=== PATIENT | female | born 1950 | race Caucasian/White ===

== ENCOUNTER → 2023-07-15 07:17 | Outpatient (REF) | payer BC, SELFPAY ==
[2023-07-15 10:08] LABS: Urine Albumin Negative (Neg - Trace); Urine Bilirubin Negative (Negative); Urine Character Clear (Clear); Urine Color Yellow; Urine Glucose Negative (Negative); Urine Ketone Negative (Negative); Urine Leukocyte 2+ (Negative); Urine Nitrite Negative (Negative); Urine Occult Blood Negative (Negative); Urine Specific Gravity 1.015 (<1.030); Urine Urobilinogen Negative (Neg - 1+)
[2023-07-15 10:16] LABS: ALT (SGPT) 34 U/L (0-35); AST (SGOT) 36 U/L (14-36); Albumin 4.2 g/dl (3.5-5.0); Alkaline Phosphatase 47 U/L (38-126); Blood Urea Nitrogen 24 mg/dl (7-17); Calcium 10.1 mg/dl (8.4-10.2); Carbon Dioxide 29 mmol/L (22-30); Chloride 105 mmol/L (98-107); Glucose 115 mg/dl (70-99); HDL Cholesterol 71 mg/dl; LDL Cholesterol, Calculated 83 mg/dl; Potassium 3.8 mmol/L (3.5-5.1); Sodium 140 mmol/L (135-145); Total Bilirubin 0.6 mg/dl (0.2-1.3); Total Cholesterol 171 mg/dl (50-199); Triglyceride 88 mg/dl (10-149); Very Low Density Lipoprotein 17 mg/dl (0-30); eGFR > 60.00
[2023-07-15 10:22] LABS: % Basophils 0.7 % (0-2); % Eosinophils 0.9 % (0-6); % Immature Granulocytes 0.4 % (0-0.5); % Monocytes 10.4 % (1.7-9.3); % Neutrophils 50.6 % (42.2-75.2); Absolute Eosinophils 0.1 10^3/uL (0-0.7); Absolute Lymphocytes 2.1 10^3/uL (1.2-3.4); Absolute Monocytes 0.6 10^3/uL (0.1-0.6); Absolute Neutrophils 2.8 10^3/uL (1.4-6.5); Hematocrit 35.3 % (37.0-47.0); Hemoglobin 12.4 g/dL (12.0-16.0); Mean Corp Hgb Conc. 35.1 g/dL (33.0-37.0); Mean Corpuscular Volume 96.7 fL (81.0-99.0); Mean Platelet Volume 10.4 fL (7.4-10.4); Nucleated Red Blood Cells % 0 %; Platelet Count 242 10^3/uL (130-400); Red Blood Cell Count 3.65 10^6/uL (4.20-5.40); Red Cell Dist. Width 12.8 % (11.5-14.5); White Blood Cell Count 5.6 10^3/uL (4.8-10.8)
[2023-07-15 11:10] LABS: Urine Amorphous Seen; Urine Bacteria Few (Negative); Urine Red Blood Cell 0-2 /HPF (0-2); Urine Urothelial Cell 0-2 /LPF (FEW)
== END ==
LOC: HWLAB 07:17
PROVIDERS: ATTENDING PHYSICIAN Nurse Practitioner Adult Health
DX: R73.03 Prediabetes (principal); Z13.9 Encounter for screening, unspecified
CPT/HCPCS: 36415; 80053; 80061; 81003; 81015; 83036; 85025; 87086

== ENCOUNTER → 2023-07-27 10:09 | Outpatient (REF) | payer BC, SELFPAY | LOC: HWLAB 10:09 | PROVIDERS: ATTENDING PHYSICIAN Nurse Practitioner Adult Health | DX: R50.9 Fever, unspecified (principal); Z87.891 Personal history of nicotine dependence | CPT/HCPCS: 71046 ==

== ENCOUNTER 2023-09-22 17:51 | Outpatient (RCR) | payer BC, SELFPAY | END 2023-09-22 23:59 | disposition home or self-care (01) | LOC: RPT 17:51 | PROVIDERS: ATTENDING PHYSICIAN Physician Assistant; FAMILY PHYSICIAN Nurse Practitioner Adult Health | DX: M51.16 Intervertebral disc disorders with radiculopathy, lumbar region (principal) | CPT/HCPCS: 97110; 97112; 97162; 97530 ==

== ENCOUNTER → 2023-09-29 16:17 | Outpatient (REF) | payer BC, SELFPAY | LOC: HWRAD 16:17 | PROVIDERS: ATTENDING PHYSICIAN Podiatrist; FAMILY PHYSICIAN Nurse Practitioner Adult Health | DX: S92.214A Nondisplaced fracture of cuboid bone of right foot, initial encounter for closed fracture (principal) | CPT/HCPCS: 73630 ==

== ENCOUNTER 2023-10-13 17:08 | Outpatient (RCR) | payer BC, SELFPAY | END 2023-10-13 23:59 | disposition home or self-care (01) | LOC: RPT 17:08 | PROVIDERS: ATTENDING PHYSICIAN Physician Assistant; FAMILY PHYSICIAN Nurse Practitioner Adult Health | DX: M51.16 Intervertebral disc disorders with radiculopathy, lumbar region (principal); M54.50 Low back pain, unspecified | CPT/HCPCS: 97010; 97110; 97112; 97530 ==

== ENCOUNTER → 2023-10-27 07:35 | Outpatient (REF) | payer BC, SELFPAY ==
[2023-10-27 09:57] LABS: % Basophils 0.5 % (0-2); % Eosinophils 0.5 % (0-6); % Immature Granulocytes 0.3 % (0-0.5); % Monocytes 9.3 % (1.7-9.3); % Neutrophils 54.4 % (42.2-75.2); Absolute Lymphocytes 2.1 10^3/uL (1.2-3.4); Absolute Monocytes 0.6 10^3/uL (0.1-0.6); Absolute Neutrophils 3.3 10^3/uL (1.4-6.5); Hemoglobin 12.5 g/dL (12.0-16.0); Mean Corp Hgb Conc. 36.8 g/dL (33.0-37.0); Mean Corpuscular Hgb 34.7 pg (27.0-31.0); Mean Corpuscular Volume 94.4 fL (81.0-99.0); Nucleated Red Blood Cells % 0 %; Red Cell Dist. Width 13.1 % (11.5-14.5)
[2023-10-27 10:31] LABS: ALT (SGPT) 39 U/L (0-35); AST (SGOT) 43 U/L (14-36); Albumin 4.5 g/dl (3.5-5.0); Alkaline Phosphatase 48 U/L (38-126); Blood Urea Nitrogen 25 mg/dl (7-17); Carbon Dioxide 30 mmol/L (22-30); Chloride 101 mmol/L (98-107); Glucose 117 mg/dl (70-99); Potassium 3.7 mmol/L (3.5-5.1); Sodium 142 mmol/L (135-145); Total Bilirubin 0.8 mg/dl (0.2-1.3); eGFR > 60.00
[2023-10-27 10:38] LABS: C-Reactive Protein < 5.00 mg/L (0.0-10.00)
[2023-10-28 17:15] LABS: Rheumatoid Agglutinin Less Than 10 IU (<10 IU)
== END ==
LOC: HWLAB 07:35
PROVIDERS: ATTENDING PHYSICIAN Physician Assistant; FAMILY PHYSICIAN Nurse Practitioner Adult Health
DX: M05.9 Rheumatoid arthritis with rheumatoid factor, unspecified (principal); M15.9 Polyosteoarthritis, unspecified; R76.8 Other specified abnormal immunological findings in serum
CPT/HCPCS: 36415; 80053; 85025; 86140; 86430

== ENCOUNTER → 2023-11-26 07:43 | Outpatient (REF) | payer BC, SELFPAY | LOC: HWWDC 07:43 | PROVIDERS: ATTENDING PHYSICIAN Nurse Practitioner Adult Health | DX: Z78.0 Asymptomatic menopausal state (principal); Z12.31 Encounter for screening mammogram for malignant neoplasm of breast | CPT/HCPCS: 77063; 77067; 77080 ==

== ENCOUNTER → 2023-12-10 10:05 | Outpatient (REF) | payer BC, SELFPAY | LOC: WDC 10:05 | PROVIDERS: ATTENDING PHYSICIAN Nurse Practitioner Adult Health | DX: R92.8 Other abnormal and inconclusive findings on diagnostic imaging of breast (principal) | CPT/HCPCS: 76642 ==

== ENCOUNTER → 2023-12-31 13:43 | Outpatient (REF) | payer BC, SELFPAY | LOC: RAD 13:43 | PROVIDERS: ATTENDING PHYSICIAN Nurse Practitioner Adult Health | DX: I73.9 Peripheral vascular disease, unspecified (principal) | CPT/HCPCS: 93922; 93925 ==

== ENCOUNTER 2024-01-13 17:52 | Emergency (ER) | payer BC, SELFPAY ==
[2024-01-13 17:54] VITALS: BP 165/90
[2024-01-13] MEDS: TYLENOL 650 MG PO (19:50)
[2024-01-13] MEDS: ADACEL 0.5 ML IM (19:51)
--- NOTE | 2024-01-13 20:00 | ED.GENMED ---
History of Present Illness
General
Chief Complaint: Head Injury
Source: patient
Exam Limitations: none
Time Seen by Provider: 01/13/24 19:26
Nursing documentation reviewed up to this point in time: agreed with
History of Present Illness
History of Present Illness:
pt is a 73 yo F with h/o HTN, GERD, sleep apnea
says she was bending forward and lost her balance and hit her head on a rock causing a laceration just above her nose. Patient says she cannot recall her last tetanus shot. Patient had no loss of consciousness. She denies alcohol use prior to the
fall. She has some upper nasal pain and some posterior neck pain as well. She has not had any nausea, vomiting, confusion, weakness, numbness tingling down her arms or legs.
Past History
Past History
ED Past Medical History: HTN and Other (RA)
ED Past Surgical History: None
Social History
Tobacco: Smoker
Alcohol: Occasional
Drug: None
Personal: Single
Review of Systems
Review of Systems
Allergies reviewed?: Yes
All Other Systems: Not applicable
Phy Exam
Physical Exam
Physical Exam:
GENERAL: Alert , in no apparent distress
HEAD: irregular shaped forhead laceration just above the nose approx 4 cm, deep
NECK: no midline tenderness, active ROM intact, no paraspinal muscle tenderness;
EYE: pupils equal and reactive, EOMs intact.
ENT: o/p clr, mmm. no hemotympanum
nose appears fractrued, slightly deformed; no epistaxis
CARDIAC: Regular rate and rhythm, no edema
LUNGS: Clear breath sounds bilaterally, no acute respiratory distress, no wheezes/rales/rhonchi
ABDOMEN: Soft, without focal tenderness, no r/g, no cvat
NEUROLOGICAL: Alert and oriented, no focal neuro deficits, CN intact, 5/5 strength, sensation intact
SKIN: Warm and dry, laceration
MUSCULOSKELETAL: No edema, well perfused.
PSYCH: Normal and appropriate interaction.
Course
Orders/Labs/Results
Orders:
Orders
01/13/24 19:39
CT Cervical Spine W/o Iv Contr Urgent
Comment:
Reason For Exam: fall hit head/neck pain
CT Facial Bones W/o Iv Contras Urgent
Comment:
Reason For Exam: fall, hit head/face
CT Head W/o Iv Contrast Urgent
Comment:
Reason For Exam: fall hit head
Acetaminophen [Tylenol] 650 mg PO NOW STA
Tetanus/Diphth/Acelpertussis [Adacel] 0.5 ml IM .ONCE ONE
Vital Signs
Initial and Last Documented VS:
Initial Vital Signs
Temp Pulse BP Pulse Ox
98.0 F 86 165/90 97
01/13/24 17:54 01/13/24 17:54 01/13/24 17:54 01/13/24 17:54
Last Documented Vital Signs
Temp Pulse Resp BP Pulse Ox
98.0 F 82 18 152/80 98
01/13/24 17:54 01/13/24 21:20 01/13/24 21:20 01/13/24 21:20 01/13/24 21:20
Procedures
Laceration Closure
Face:
Status of Wound: clean
Description of Wound Edges: ragged and macerated
Preparation: cleaned with saline
Anesthesia: 1% Lidocaine with epi
Revision/Debridement: minor revision and irrigate-direct pressure
Wound exploration: foreign body removed (gravel)
Type of Closure: layered closure
Skin Closure Material: 5-0 nylon and 5-0 vicryl
Number of sutures: 10
MDM/Problems Addressed
Differential Diagnosis Includes:
laceration, head injury, nasal fracture, concussion
MDM/Problems Addressed:
73 y/o F mechanical fall forward when she was bending over and hit her head on a rock causing irregular laceeration and probable nasal fx
no AC
tetanus updated here
neuro intact
pending head/neck/facial bone ct
will require lac repair
lac well approximated
ct actually showed no nasal fracture, no sig head injury
incidentally chiari I and cervical disc disease
pt made aware
d/c home
*Critical Care Note
Total Time (30-74mins, 75-104mins- exclusive of procedures): Not Applicable
ED Attending Note
-
Portions of this chart may have been created with voice recognition software.� Occasional wrong word or��sound alike� substitutions may have occurred due to the inherent limitations of voice recognition software.
Discharge Plan
Departure
Patient Disposition: Home (Routine Discharge)
Date of Disposition: 01/13/24
Time of Disposition: 21:15
Patient with high blood pressure during this ER visit?: Yes
Condition: Fair
Covid-19: Not Applicable
Discharge Problem:
Laceration, Fall
Instructions: Head Injury in Adults (DC), Laceration Repair With Stitches (DC), Minor Contusion ED, BLOOD PRESSURE
Prescriptions:
No Action
amlodipine 5 mg Tablet
5 mg PO DAILY
ibuprofen [Advil] 200 mg Tablet
200 mg PO Q6H PRN (Reason: pain )
omeprazole magnesium [Prilosec OTC] 20 mg Tablet,Delayed Release (Dr/Ec)
20 mg PO DAILY
cholecalciferol (vitamin D3) [Vitamin D3] 125 mcg (5,000 unit) Tablet
250 mcg PO DAILY
Rinvoq 15 mg Tablet Extended Release 24 Hr
15 mg PO DAILY
hydrochlorothiazide
25 mg PO DAILY
simethicone 125 mg Tablet
125 mg PO DIRECTED
Sutab 1.479-0.188- 0.225 gram Tablet
0 tab PO PER PKG DIR
Referrals:
Susan Henriquez CRNP [Family Provider] - Follow up in 5-7 days
Activity Restrictions/Additional Instructions:
KEEP THE WOUND CLEAN AND DRY FOR 24 HOURS
AFTER THAT YOU CAN GET IT WET IN THE BATH/SHOWER ONCE A DAY AND MAKE SURE IT IS CLEAN AND THERE IS NO DRIED BLOOD ON THE STITCHES
APPLY NEOSPORIN AND A BANDAID
THE STITCHES NEED TO BE REMOVED IN ABOUT 7 DAYS, SEE YOUR DOCTOR FOR THIS.
THE LAST DAY BEFORE STITCHES OUT, NO OINTMENT, LEAVE OPEN TO AIR
WATCH FOR SIGNS OF INFECTION AND RETURN NEEDED FOR PAIN, SWELLING, REDNESS, DRAINAGE, BLEEDING.
MOTRIN NEEDED FOR PAIN.
Your CAT scan did not show any obvious fracture to your nasal bone or your facial bones. Incidentally you had some findings on your CAT scan and your cervical spine with chronic degenerative changes. You can follow-up with your family doctor about
this.
Return to the ER for vomiting, confusion, severe headache, weakness or numbness in your arms or legs, signs of infection or any concerns.
Interventions
Interventions:
*Risk Screen - Suicide Last Done: 01/13/24 17:58
*General Assessment Last Done: 01/13/24 17:57
*Neglect/Abuse Screening Last Done: 01/13/24 17:58
*ED COVID-19 Vaccine History Last Done: 01/13/24 17:56
*Nursing Disposition Last Done: 01/13/24 21:20
ED- Neurological Assessment Last Done: 01/13/24 19:18
ED-Skin Assessment Last Done: 01/13/24 19:18
Discharge Date and Time
Discharge Date/Time: 01/13/24 22:43
Print Language: LUXEMBOURGISH
[2024-01-13 21:19] VITALS: BP 152/80
[2024-01-13 21:20] VITALS: BP 152/80
== END 2024-01-13 22:43 | disposition home or self-care (01) ==
LOC: EMR 17:52
PROVIDERS: EMERGENCY PHYSICIAN Emergency Medicine; FAMILY PHYSICIAN Nurse Practitioner Adult Health
DX: S01.82XA Laceration with foreign body of other part of head, initial encounter (principal); W01.198A Fall on same level from slipping, tripping and stumbling with subsequent striking against other object, initial encounter; G47.30 Sleep apnea, unspecified; I10 Essential (primary) hypertension; K21.9 Gastro-esophageal reflux disease without esophagitis; F17.200 Nicotine dependence, unspecified, uncomplicated; Z23 Encounter for immunization
CPT/HCPCS: 12052; 90471; 99284; 70450; 70486; 72125; 90715

== ENCOUNTER → 2024-03-28 18:56 | Outpatient (REF) | payer BC, SELFPAY | LOC: MRI 18:56 | PROVIDERS: ATTENDING PHYSICIAN Nurse Practitioner Adult Health | DX: R19.09 Other intra-abdominal and pelvic swelling, mass and lump (principal) | CPT/HCPCS: 72197; A9575 ==

== ENCOUNTER → 2024-04-17 12:25 | Outpatient (REF) | payer BC, SELFPAY ==
[2024-04-17 13:15] VITALS: BP 183/96; BP_SYST 74
[2024-04-17 14:06] VITALS: BP 181/76
== END ==
LOC: RADI 12:25
PROVIDERS: ATTENDING PHYSICIAN Nurse Practitioner Adult Health
DX: D21.22 Benign neoplasm of connective and other soft tissue of left lower limb, including hip (principal)
CPT/HCPCS: 88305; 20206; 76942; 88333

== ENCOUNTER → 2024-05-29 07:09 | Outpatient (REF) | payer BC, SELFPAY ==
[2024-05-29 09:23] LABS: % Basophils 0.4 % (0-2); % Eosinophils 0.4 % (0-6); % Immature Granulocytes 0.4 % (0-0.5); % Lymphocytes 27.2 % (20.5-51.1); % Monocytes 8.5 % (1.7-9.3); % Neutrophils 63.1 % (42.2-75.2); Absolute Lymphocytes 1.9 10^3/uL (1.2-3.4); Absolute Monocytes 0.6 10^3/uL (0.1-0.6); Absolute Neutrophils 4.4 10^3/uL (1.4-6.5); Hematocrit 34.3 % (37.0-47.0); Hemoglobin 12.2 g/dL (12.0-16.0); Mean Corp Hgb Conc. 35.6 g/dL (33.0-37.0); Mean Corpuscular Hgb 34.9 pg (27.0-31.0); Mean Platelet Volume 9.9 fL (7.4-10.4); Nucleated Red Blood Cells % 0 %; Platelet Count 222 10^3/uL (130-400); Red Cell Dist. Width 12.7 % (11.5-14.5); White Blood Cell Count 6.9 10^3/uL (4.8-10.8)
[2024-05-29 09:48] LABS: ALT (SGPT) 32 U/L (0-35); AST (SGOT) 39 U/L (14-36); Alkaline Phosphatase 46 U/L (38-126); Blood Urea Nitrogen 19 mg/dl (7-17); Carbon Dioxide 30 mmol/L (22-30); Chloride 106 mmol/L (98-107); Glucose 103 mg/dl (70-99); HDL Cholesterol 65 mg/dl; LDL Cholesterol, Calculated 73 mg/dl; Potassium 3.5 mmol/L (3.5-5.1); Sodium 144 mmol/L (135-145); Total Bilirubin 0.7 mg/dl (0.2-1.3); Total Cholesterol 150 mg/dl (50-199); Total Protein 6.7 g/dl (6.3-8.2); Triglyceride 64 mg/dl (10-149); Very Low Density Lipoprotein 12 mg/dl (0-30); eGFR > 60.00
[2024-05-29 09:56] LABS: C-Reactive Protein < 5.00 mg/L (0.0-10.00)
[2024-05-29 10:27] LABS: Erythrocyte Sed Rate 6 mm/hour (0-20)
[2024-05-29 11:00] LABS: Glycohemoglobin (HgbA1c) 5.3 % (4.0-5.6)
[2024-05-29 16:05] LABS: TSH Reflex To Free T4 2.34 uIU/ml (0.47-4.68)
== END ==
LOC: HWLAB 07:09
PROVIDERS: ATTENDING PHYSICIAN Internal Medicine Rheumatology; FAMILY PHYSICIAN Nurse Practitioner Adult Health
DX: M05.9 Rheumatoid arthritis with rheumatoid factor, unspecified (principal); M15.9 Polyosteoarthritis, unspecified; Z79.899 Other long term (current) drug therapy; I10 Essential (primary) hypertension; R73.03 Prediabetes; K76.0 Fatty (change of) liver, not elsewhere classified
CPT/HCPCS: 36415; 80053; 80061; 83036; 84443; 85025; 85652; 86140

== ENCOUNTER 2024-06-06 06:25 | Day surgery (SDC) | payer BC, SELFPAY ==
[2024-06-06] VITALS (7 sets, daily range): BP systolic 144–182; BP diastolic 63–92; BMI 37.7
[2024-06-06] MEDS: NORMOSOL-R/PLASMALYTE-A 1000 IV (08:05)
[2024-06-06] MEDS: TYLENOL 1000 MG PO (08:05)
--- NOTE | 2024-06-06 11:29 | W.IMMPOSTOP ---
Surgical Immed Post Op Note
-
Primary Surgeon: Rafaela
Assisting: Nomi VELA
Pre-op Diagnosis: Soft tissue mass left thigh
Post-op Diagnosis: Same
Procedure Performed: Excision of soft tissue mass of left thigh
Anesthesia Type: MAC local
Specimen / Cultures: Left thigh mass
Estimated Blood Loss: 10cc
Complications: None immediate
Operative Findings: 12cm x 10cm x 10 cm soft tissue mass of proximal medial left thigh
--- NOTE | 2024-06-06 11:31 | OR.RPT ---
Operative Report
Operative Report
Primary Surgeon: Rafaela
Assisting: Nomi VELA
Pre-op Diagnosis: Soft tissue mass left thigh
Post-op Diagnosis: Same
Procedure Performed: Excision of soft tissue mass of left thigh
Anesthesia Type: MAC local
Specimen / Cultures: Left thigh mass
Estimated Blood Loss: 10cc
Complications: None immediate
Operative Findings: 12cm x 10cm x 10 cm soft tissue mass of proximal medial left thigh
Date of Surgery: 06/06/24
Indications: This 74F developed a proximal medial left thigh mass. MRI was without suspicious features. 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 She elected excision.
PROCEDURE: After informed consent was obtained, the patient was brought to the operative suite and placed supine on the operating table. The patient was sedated, prepped and draped in the usual sterile manner and an adequate local anesthetic was
administered using a lidocaine and marcaine.
An incision was made over the mass and dissection was carried down to the fascia with electrocautery. The fascia was opened and the muscle was parted over the mass. Due to the size of the mass some of the muscle was incised to improve exposure. The
greater saphenous vein was identified. It was isolated, controlled with vicryl ties and divided. The mass was the bluntly freed from surrounding attachments taking care to protect the neurovascular bundle lateral to the mass. Ultimately the mass eas
excised in toto and passed off the table as specimen.
The wound was then irrigated with copious sterile saline, and hemostasis was obtained using Bovie electrocautery. A small amount of muscle oozing was noted, francesca powder was placed into the cavity to aid hemostasis The subcutaneous fat layers and
glen's fascia were closed with 2-0 vicryl sutures. The skin was approximated with 3-0 Vicryl deep dermal interrupted sutures and 4-0 monocryl suture in a subcuticular fashion. Topical skin glue was then applied. All surgical counts were reported
as correct.
The patient tolerated the procedure well and was taken to the PACU in stable condition.
[2024-06-06] MEDS: ROXICODONE 5 MG PO (12:35)
== END 2024-06-06 13:12 | disposition home or self-care (01) ==
LOC: SDS 06:25
PROVIDERS: ATTENDING PHYSICIAN Surgery
DX: D21.22 Benign neoplasm of connective and other soft tissue of left lower limb, including hip (principal); R22.42 Localized swelling, mass and lump, left lower limb
CPT/HCPCS: 27337; 88304

== ENCOUNTER → 2024-07-19 15:10 | Outpatient (REF) | payer BC, SELFPAY ==
[2024-07-19 15:26] LABS: Urine Albumin 2+ (Neg - Trace); Urine Bilirubin Negative (Negative); Urine Character Clear (Clear); Urine Color Yellow; Urine Glucose Negative (Negative); Urine Ketone Negative (Negative); Urine Leukocyte 3+ (Negative); Urine Nitrite Negative (Negative); Urine Occult Blood 2+ (Negative); Urine Urobilinogen Negative (Neg - 1+)
[2024-07-19 15:30] LABS: Urine Bacteria Few (Negative); Urine Red Blood Cell 0-2 /HPF (0-2)
== END ==
LOC: CLAB 15:10
PROVIDERS: ATTENDING PHYSICIAN Urology
DX: R39.9 Unspecified symptoms and signs involving the genitourinary system (principal)
CPT/HCPCS: 81003; 81015; 87086

== ENCOUNTER 2024-08-15 13:56 | Observation (INO) | payer BC, MEDICARE, SELFPAY ==
[2024-08-15] VITALS (8 sets, daily range): BP systolic 128–210; BP diastolic 63–118; BMI 33.6
--- NOTE | 2024-08-15 08:29 | ED.GENMED ---
History of Present Illness
General
Chief Complaint: Dizziness
Time Seen by Provider: 08/15/24 08:15
History of Present Illness
History of Present Illness:
74-year-old female with history of morbid obesity and GERD presents to the emergency department for evaluation of diffuse shaking as well as dizziness/lightheadedness for the past 2 weeks. She notes that she had a recent upper respiratory tract
infection and finished a course of doxycycline 3 days ago but the shaking began prior to this. Still has coughing and nasal congestion, denies fevers or chills. Feels shaky all the time without any obvious provoking or palliating factors. No
chest pain or dyspnea. Describes a diffuse lightheaded sensation that is worse when ambulating, no vertigo. Started on semaglutide 4 months ago and has not had any dose changes at that however does note that she has had no appetite for several
weeks.
Past History
Past History
ED Past Medical History: HTN and Other (RA)
ED Past Surgical History: None
Social History
Tobacco: Smoker
Alcohol: Occasional
Drug: None
Personal: Single
Review of Systems
Review of Systems
Allergies reviewed?: Yes
All Other Systems: ROS reviewed and negative except as documented in HPI and ROS
Phy Exam
Physical Exam
Physical Exam:
GEN: Well appearing, NAD, WDWN
HEENT: Oral mucosa moist, no scleral icterus, no nasal congestion
Cardiac: Regular rate and rhythm with occasional extrasystoles
Lung: No respiratory distress, no tachypnea, lungs clear to auscultation bilaterally
MSK: No gross deformity or injuries
Skin: Good color, no pallor or jaundice, no rashes
Neuro: AO x3; CN II-XII grossly intact. BUE strength 5/5 in all santana, sensation intact and symmetric. BLE strength 5/5 in all santana, sensation intact and symmetric, widespread tremor at rest noted
Psych: Calm, cooperative
Course
Orders/Labs/Results
Orders:
Orders
08/15/24 08:28
Electrocardiogram (*1) Urgent
Reason for Study: Vertigo / Dizzy
EKG- Treatment ONCE
08/15/24 08:29
CR Chest - 2 Views Urgent
Comment:
Reason For Exam: dizziness, coughing
08/15/24 08:54
Complete Blood Count/No Diff Urgent
Comprehensive Metabolic Panel Urgent
Magnesium Urgent
TSH Urgent
08/15/24 09:37
Magnesium Sulfate 4 Gram/100Ml [Magnesium Sulfate] 4 gram in 100 ml IV NOW
Potassium Chloride [KCl] 20 meq PO NOW STA
Potassium Chloride [KCl] 20 meq 0.9% Sodium Chloride 150 ml [Nss] 150 ml IV NOW
Abnormal Lab Results
08/15/24
08:54
RBC 3.34 L 10^6/uL
(4.20-5.40)
Hgb 11.6 L g/dL
(12.0-16.0)
Hct 32.2 L %
(37.0-47.0)
MCH 34.7 H pg
(27.0-31.0)
Potassium 3.4 L mmol/L
(3.5-5.1)
Chloride 110 H mmol/L
(98-107)
Glucose 118 H mg/dl
(70-99)
Magnesium 0.4 L* mg/dl
(1.6-2.3)
Alkaline Phosphatase 36 L U/L
(38-126)
08/15/24 08:54
08/15/24 08:54
Vital Signs
Initial and Last Documented VS:
Initial Vital Signs
Temp Pulse Resp BP Pulse Ox
97.6 F 80 18 154/89 99
08/15/24 08:10 08/15/24 08:10 08/15/24 08:10 08/15/24 08:10 08/15/24 08:10
Last Documented Vital Signs
Temp Pulse Resp BP Pulse Ox
97.6 F 80 18 154/89 99
08/15/24 08:10 08/15/24 08:10 08/15/24 08:51 08/15/24 08:10 08/15/24 08:10
MDM/Problems Addressed
MDM/Problems Addressed:
Hypomagnesemia is most likely the cause of her symptoms and this is likely driven by PPI use and potentially GLP-1 use as well. Given his severe low level of magnesium and the likely prolonged time. In order to replenish, coupled with the
likelihood that oral supplementation will not provide rapid increases, she is reasonable for inpatient hospitalization for further management
*Pulse Oximetry
Patient hypoxic: no
Comment: 99% RA
*Critical Care Note
Total Time (30-74mins, 75-104mins- exclusive of procedures): 30 minutes
comment:
Critical care time: 30 min
Critical care time was exclusive of: Separately billable procedures, treating other patients, and teaching time
Critical care was necessary to treat or prevent imminent or life-threatening deterioration of the following conditions: Critical hypomagnesemia
Critical care time spent personally by me on the following activities:
[x] Review of old charts
[x] Obtaining history from patient or surrogate
[x] Ordering and review of the laboratory studies
[ ] Ordering and review of radiographic studies
[x] Ordering and performing treatments and interventions
[x] Patient patient's response to treatment
[x] Development of treatment plan with patient or surrogate
ED Attending Note
-
Portions of this chart may have been created with voice recognition software.� Occasional wrong word or��sound alike� substitutions may have occurred due to the inherent limitations of voice recognition software.
Discharge Plan
Departure
Patient Disposition: Admit
Date of Disposition: 08/15/24
Time of Disposition: 10:34
Admit to: Telemetry
Presentation/result/management discussed w/ accepting MD/DO: Hospitalist
Discharge Problem:
Hypomagnesemia
Prescriptions:
No Action
omeprazole magnesium [Prilosec OTC] 20 mg Tablet,Delayed Release (Dr/Ec)
20 mg PO DAILY
Rinvoq 15 mg Tablet Extended Release 24 Hr
15 mg PO DAILY
semaglutide (weight loss)
0.6 ml SC WE
Referrals:
Susan Henriquez CRNP [Family Provider, General]
Interventions
Interventions:
*Risk Screen - Suicide Last Done: 08/15/24 08:10
*General Assessment Last Done: 08/15/24 08:10
*Neglect/Abuse Screening Last Done: 08/15/24 08:10
*ED- Fall Risk Assessment Last Done: 08/15/24 09:03
*ED COVID-19 Vaccine History Last Done: 08/15/24 09:03
ED- Neurological Assessment Last Done: 08/15/24 09:03
ED- Cardiac Assessment Last Done: 08/15/24 09:03
Discharge Date and Time
Print Language: FRISIAN
[2024-08-15 09:02] LABS: Hematocrit 32.2 % (37.0-47.0); Hemoglobin 11.6 g/dL (12.0-16.0); Mean Corpuscular Hgb 34.7 pg (27.0-31.0); Mean Corpuscular Volume 96.4 fL (81.0-99.0); Mean Platelet Volume 9.6 fL (7.4-10.4); Platelet Count 225 10^3/uL (130-400); Red Blood Cell Count 3.34 10^6/uL (4.20-5.40); White Blood Cell Count 8.7 10^3/uL (4.8-10.8)
[2024-08-15 09:30] LABS: ALT (SGPT) 24 U/L (0-35); AST (SGOT) 27 U/L (14-36); Alkaline Phosphatase 36 U/L (38-126); Blood Urea Nitrogen 15 mg/dl (7-17); Calcium 8.8 mg/dl (8.4-10.2); Carbon Dioxide 25 mmol/L (22-30); Chloride 110 mmol/L (98-107); Glucose 118 mg/dl (70-99); Magnesium 0.4 mg/dl (1.6-2.3); Potassium 3.4 mmol/L (3.5-5.1); Sodium 144 mmol/L (135-145); Total Bilirubin 0.7 mg/dl (0.2-1.3); Total Protein 6.8 g/dl (6.3-8.2); eGFR > 60.00
[2024-08-15 09:48] LABS: TSH 2.76 uIU/ml (0.47-4.68)
[2024-08-15] MEDS: MAGNESIUM SULFATE 100 IV (11:23)
[2024-08-15] MEDS: KCL 20 MEQ PO (11:27)
[2024-08-15] MEDS: KCL 160 MEQ IV (11:33)
--- NOTE | 2024-08-15 12:58 | HPS.HSE ---
Family Physician
-
Family Physician: Susan Henriquez
Chief Complaint
-
Diffuse shaking , dizziness/lightheadedness
History of Present Illness
74 y/o female with past medical history of melanoma, hypertension, rheumatoid arthritis and GERD, presented with generalized weakness (more so in the lower extremities), dizziness and tremors for the past ~2 weeks. Patient also reported
nausea/vomiting one episode on 08/11/24. Patient had a recent upper respiratory tract infection and UTI and was placed on antibiotics three different times -- she was tested for COVID and Flu twice in the past few weeks, and tested negative for both
COVID and Flu twice. She denied any chest pain, shortness of breath, fever, chills, numbness, tingling or any other symptoms. She said she could still ambulate but she feels weaker than usual in her legs.
Medical History
Past Medical History
Past Medical History: Reports Other (As per HPI above)
Past Surgical History: Reports Other (Left lower extremity -- resection of benign mass)
Social History
Tobacco: Former Smoker
Alcohol: None
Drug: None
Family History
Family History: Cancer
Allergies / Home Medications
Allergies reflects when Allergies were last updated in [employer]
Home Medications with original date entered in [employer]
Allergy/Medication List:
Allergies
Allergy/AdvReac Type Severity Reaction Status Date / Time
hydroxychloroquine (From Allergy Rash Verified 08/15/24 08:10
Plaquenil)
Home Medications
omeprazole magnesium 20 mg tablet,delayed release (Prilosec OTC) 20 mg PO DAILY 07/22/22
upadacitinib 15 mg tablet,extended release 24 hr (Rinvoq) 15 mg PO DAILY 07/22/22
semaglutide (weight loss) 0.6 ml SC WE 06/02/24
Review of Systems
-
A 12 point ROS was completed and negative except as noted: Yes
Physical Exam
Vital Signs
Vital Signs
Temp Pulse Resp BP Pulse Ox
97.6 F 79 20 164/81 97
08/15/24 08:10 08/15/24 11:30 08/15/24 11:30 08/15/24 11:22 08/15/24 10:30
Physical Exam
General: No Apparent Distress, Comfortable and Conversant
HEENT: NormoCephalic, Moist mucous membranes and Atraumatic
Respiratory: Clear
Cardiac: S1/S2 and Regular Rhythm
GI: Soft, Non Tender and Normal Bowel Sounds
Musculoskeletal: No Cyanosis
Skin: Warm and Dry
Neuro: Awake, Alert, No Motor Deficits, Nonfocal/grossly intact, Cranial Nerves Intact and Tremors (Slight)
Psych: Calm and Intact Judgment/Insight
Laboratory Results
-
08/15/24 08:54
08/15/24 08:54
Laboratory Results
Total Bilirubin 0.7 mg/dl (0.2-1.3) 08/15/24 08:54
AST 27 U/L (14-36) 08/15/24 08:54
ALT 24 U/L (0-35) 08/15/24 08:54
Alkaline Phosphatase 36 U/L (38-126) L 08/15/24 08:54
Impression/Plan
-
Assessment/Plan
Presented with generalized weakness (more so in the lower extremities), dizziness and tremors for the ~2 weeks prior to presentation
Severe Hypomagnesemia
Hypokalemia
-Electrolyte imbalances can explain patient's symptoms
-Patient says she can still ambulate and neuro exam in the ER was good
-Hold home Omeprazole -- right now this seems to be the source of patient's low magnesium
-Magnesium and Potassium supplementation ordered in the ER
-Recheck BMP and Magnesium this evening and at least daily
-Neurochecks
-Continue to monitor on telemetry
Nausea/vomiting -- one episode on 08/11/24
-Patient said this was just one episode and she did not vomit much
-Not convincing that the nausea and vomiting on 08/11/24 resulted in patient's symptoms
Recent upper respiratory tract infection
Recent UTI and was placed on antibiotics three different times
-Was on Doxycycline and also another antibiotic (which patient does not recall the name of)
-Patient was tested for COVID and Flu twice in the past few weeks prior to presentation, and tested negative for both COVID and Flu twice
History of melanoma
Hypertension
Rheumatoid Arthritis
-Continue outpatient Rinvoq
GERD
-Conservative management for now
-No history of GI bleed, as per patient
DVT Prophylaxis: SCDs and Lovenox
Code Status: Full Code
--- NOTE | 2024-08-15 16:12 | CM ---
CM reviewed chart and met with pt bedside in ED. NOEMÍ completed, ZARI completed. Lives with her son, multistory home, 1 INES, full flight of stairs to BR/BA.
Independent in ADLs, personal care and ambulation prior to admission, no DME in home.
Still working. No financial insecurities, no hx VN or SNF.
PCP: Susan Henriquez
Pharmacy: [facility]
Discharge plan: Anticipate home, watch for needs
[2024-08-15] MEDS: APRESOLINE 5 MG IV (17:50)
[2024-08-15 18:06] LABS: Blood Urea Nitrogen 11 mg/dl (7-17); Calcium 8.7 mg/dl (8.4-10.2); Carbon Dioxide 26 mmol/L (22-30); Chloride 109 mmol/L (98-107); Estimated Creatinine Clearance 86 ml/min; Glucose 97 mg/dl (70-99); Magnesium 1.9 mg/dl (1.6-2.3); Potassium 3.6 mmol/L (3.5-5.1); Sodium 141 mmol/L (135-145); eGFR > 60.00
[2024-08-15] MEDS: KCL 40 MEQ PO (20:07)
[2024-08-16 03:39] VITALS: BP 152/81
--- NOTE | 2024-08-16 04:22 | DOWNTIME ---
Addendum entered by Megan Jernigan RN 08/16/24 14:24:
Correction: Downtime was 08/16/2024 from 0100 to 08/16/2024 at 0415
Original Note:
There was a [employer] Client Radiology Practitioner Assistant Downtime on 08/15/2024 from 0100 to 08/16/2024 at 0415. Downtime documentation of patient's care, including medication administrations, has been reconciled in the electronic record per guidelines. Refer to the
patient's paper chart under the miscellaneous tab to see printed paper medication records and downtime forms.
[2024-08-16 07:43] VITALS: BP 162/82
[2024-08-16 08:14] LABS: Hematocrit 33.3 % (37.0-47.0); Hemoglobin 11.6 g/dL (12.0-16.0); Mean Corp Hgb Conc. 34.8 g/dL (33.0-37.0); Mean Corpuscular Hgb 33.7 pg (27.0-31.0); Mean Corpuscular Volume 96.8 fL (81.0-99.0); Mean Platelet Volume 9.6 fL (7.4-10.4); Platelet Count 234 10^3/uL (130-400); Red Blood Cell Count 3.44 10^6/uL (4.20-5.40); Red Cell Dist. Width 13.1 % (11.5-14.5); White Blood Cell Count 8.8 10^3/uL (4.8-10.8)
[2024-08-16 08:33] LABS: Blood Urea Nitrogen 10 mg/dl (7-17); Calcium 8.7 mg/dl (8.4-10.2); Carbon Dioxide 22 mmol/L (22-30); Chloride 112 mmol/L (98-107); Estimated Creatinine Clearance 86 ml/min; Glucose 91 mg/dl (70-99); Magnesium 1.7 mg/dl (1.6-2.3); Potassium 4.4 mmol/L (3.5-5.1); Sodium 142 mmol/L (135-145); eGFR > 60.00
[2024-08-16] MEDS: NORVASC 2.5 MG PO (08:53)
--- NOTE | 2024-08-16 08:53 | W.PN.HOSP.TC ---
Today's Communication/Plan
-
Discharge today
Assessment / Plan
Assessment / Plan
Physical Exam
General: No Apparent Distress, Comfortable and Conversant
HEENT: NormoCephalic, Moist mucous membranes and Atraumatic
Respiratory: Clear
Cardiac: S1/S2 and Regular Rhythm
GI: Soft, Non Tender and Normal Bowel Sounds
Musculoskeletal: No Cyanosis
Skin: Warm and Dry
Neuro: Awake, Alert, No Motor Deficits, Nonfocal/grossly intact, Cranial Nerves Intact and No Tremors. Good mobility and ambulation.
Psych: Calm and Intact Judgment/Insight
Assessment/Plan
Presented with generalized weakness (more so in the lower extremities), dizziness and tremors for the ~2 weeks prior to presentation
Severe Hypomagnesemia
Hypokalemia
-Electrolyte imbalances can explain patient's symptoms
-After electrolyte replacements, patient's symptoms have resolved
-Stop home Omeprazole -- right now this seems to be the source of patient's low magnesium
-Magnesium and Potassium supplementation administered
-Continue to monitor on telemetry
-Additional IV Magnesium supplementation today
-On discharge: PO Magnesium
-Recheck CBC, BMP and Magnesium with primary care provider's office in 1 to 2 days
Nausea/vomiting -- one episode on 08/11/24
-Patient said this was just one episode and she did not vomit much
-Not convincing that the nausea and vomiting on 08/11/24 resulted in patient's symptoms
Recent upper respiratory tract infection
Recent UTI and was placed on antibiotics three different times
-Was on Doxycycline and also another antibiotic (which patient does not recall the name of)
-Patient was tested for COVID and Flu twice in the past few weeks prior to presentation, and tested negative for both COVID and Flu twice
History of melanoma
Hypertension
Rheumatoid Arthritis
-Continue outpatient Rinvoq
GERD
-Conservative management for now
-No history of GI bleed, as per patient
DVT Prophylaxis: SCDs and Lovenox
Code Status: Full Code
More than 30 minutes spent in discharge including
Final examination of the patient
Summarizing hospital stay
Instructions for continuing care to all relevant caregivers
Preparation of discharge records, prescriptions, and referral forms
Total time spent (in minutes): 37
Anticipated Discharge: Today
Subjective/Interval History
-
Date of Service: August 16, 2024
Patient was seen and examined. She reported doing a lot better this morning, she stated that her dizziness, tremors and weakness have all resolved.
Objective Data
-
Labs:
Laboratory Results
08/16/24
07:35
WBC 8.8
Hgb 11.6 L
Hct 33.3 L
Plt Count 234
Sodium 142
Potassium 4.4
Chloride 112 H
Carbon Dioxide 22
BUN 10
Creatinine 0.5 L
Glucose 91
Calcium 8.7
Vital Signs:
Vital Signs
Temp Pulse Resp BP Pulse Ox
98.3 F 88 20 162/82 97
08/16/24 07:43 08/16/24 07:43 08/16/24 07:43 08/16/24 07:43 08/16/24 07:43
I&O
08/15/24 08/16/24 08/17/24
06:59 06:59 06:59
Intake Total 660 / 660
Balance 660 / 660
[2024-08-16 09:16] LABS: Vitamin B12 621 pg/ml (239-931)
[2024-08-16] MEDS: MAGNESIUM SULFATE 50 IV (09:16)
[2024-08-16 11:44] VITALS: BP 151/75
--- NOTE | 2024-08-16 12:55 | PTOTSP ---
The patient is independent with ambulation and elevations, offering no concerns regarding mobility upon return home. No PT needs identified at this time, will sign off.
[2024-08-16 13:18] LABS: Blood Urea Nitrogen 13 mg/dl (7-17); Calcium 8.4 mg/dl (8.4-10.2); Carbon Dioxide 20 mmol/L (22-30); Chloride 112 mmol/L (98-107); Estimated Creatinine Clearance 86 ml/min; Glucose 95 mg/dl (70-99); Magnesium 2.3 mg/dl (1.6-2.3); Potassium 4.5 mmol/L (3.5-5.1); Sodium 140 mmol/L (135-145); eGFR > 60.00
--- NOTE | 2024-08-16 14:37 | CM ---
Chart reviewed. Patient for d/c today
No CM needs identified
Plan: Home, no needs
== END 2024-08-16 15:05 | disposition home or self-care (01) ==
LOC: 4 EAST ACU 13:56
PROVIDERS: Physician Assistant; ADMITTING PHYSICIAN Hospitalist; EMERGENCY PHYSICIAN Emergency Medicine; FAMILY PHYSICIAN Nurse Practitioner Adult Health
DX: E87.8 Other disorders of electrolyte and fluid balance, not elsewhere classified (principal); R42 Dizziness and giddiness; F17.200 Nicotine dependence, unspecified, uncomplicated; E83.42 Hypomagnesemia; E87.6 Hypokalemia; M06.9 Rheumatoid arthritis, unspecified; K21.9 Gastro-esophageal reflux disease without esophagitis; I10 Essential (primary) hypertension; Z85.820 Personal history of malignant melanoma of skin
CPT/HCPCS: 71046; 80048; 80053; 82607; 83735; 84443; 85027; 93005; 96365; 96366; 96375; 97161; 99291; G0378

== ENCOUNTER → 2024-08-21 06:47 | Outpatient (REF) | payer BC, SELFPAY ==
[2024-08-21 09:55] LABS: % Basophils 0.5 % (0-2); % Eosinophils 0.8 % (0-6); % Immature Granulocytes 0.3 % (0-0.5); % Lymphocytes 32.3 % (20.5-51.1); % Monocytes 9.1 % (1.7-9.3); Absolute Eosinophils 0.1 10^3/uL (0-0.7); Absolute Monocytes 0.6 10^3/uL (0.1-0.6); Absolute Neutrophils 3.6 10^3/uL (1.4-6.5); Hematocrit 34.3 % (37.0-47.0); Hemoglobin 11.8 g/dL (12.0-16.0); Mean Corp Hgb Conc. 34.4 g/dL (33.0-37.0); Mean Corpuscular Hgb 33.6 pg (27.0-31.0); Mean Corpuscular Volume 97.7 fL (81.0-99.0); Mean Platelet Volume 10.1 fL (7.4-10.4); Nucleated Red Blood Cells % 0 %; Platelet Count 219 10^3/uL (130-400); Red Blood Cell Count 3.51 10^6/uL (4.20-5.40); Red Cell Dist. Width 13.1 % (11.5-14.5); White Blood Cell Count 6.3 10^3/uL (4.8-10.8)
[2024-08-21 11:12] LABS: Blood Urea Nitrogen 17 mg/dl (7-17); Calcium 9.7 mg/dl (8.4-10.2); Carbon Dioxide 20 mmol/L (22-30); Chloride 111 mmol/L (98-107); Glucose 111 mg/dl (70-99); Magnesium 1.5 mg/dl (1.6-2.3); Potassium 4.3 mmol/L (3.5-5.1); Sodium 140 mmol/L (135-145); eGFR > 60.00
== END ==
LOC: HWLAB 06:47
PROVIDERS: ATTENDING PHYSICIAN Nurse Practitioner Adult Health
DX: E83.42 Hypomagnesemia (principal); I10 Essential (primary) hypertension; E87.6 Hypokalemia
CPT/HCPCS: 36415; 80048; 83735; 85025

== ENCOUNTER → 2024-08-28 06:52 | Outpatient (REF) | payer BC, SELFPAY ==
[2024-08-28 09:21] LABS: % Basophils 0.4 % (0-2); % Eosinophils 0.8 % (0-6); % Immature Granulocytes 0.3 % (0-0.5); % Lymphocytes 33.2 % (20.5-51.1); % Monocytes 8.8 % (1.7-9.3); % Neutrophils 56.5 % (42.2-75.2); Absolute Eosinophils 0.1 10^3/uL (0-0.7); Absolute Lymphocytes 2.5 10^3/uL (1.2-3.4); Absolute Monocytes 0.7 10^3/uL (0.1-0.6); Absolute Neutrophils 4.3 10^3/uL (1.4-6.5); Hematocrit 37.4 % (37.0-47.0); Hemoglobin 12.5 g/dL (12.0-16.0); Mean Corp Hgb Conc. 33.4 g/dL (33.0-37.0); Mean Corpuscular Hgb 33.5 pg (27.0-31.0); Mean Corpuscular Volume 100.3 fL (81.0-99.0); Mean Platelet Volume 9.6 fL (7.4-10.4); Nucleated Red Blood Cells % 0 %; Platelet Count 271 10^3/uL (130-400); Red Blood Cell Count 3.73 10^6/uL (4.20-5.40); White Blood Cell Count 7.6 10^3/uL (4.8-10.8)
[2024-08-28 09:44] LABS: Calcium 9.3 mg/dl (8.4-10.2); Magnesium 2.1 mg/dl (1.6-2.3)
[2024-08-28 09:51] LABS: Vitamin D, 25-OH*** 42.6 ng/mL (30-80)
[2024-08-28 10:10] LABS: Ferritin 47.6 ng/ml (11.1-264.0)
[2024-08-28 10:41] LABS: Folate 15.6 ng/ml (2.76-20); Vitamin B12 515 pg/ml (239-931)
[2024-08-29 10:46] LABS: Intact PTH 39.5 pg/ml (13.6-85.8)
== END ==
LOC: HWLAB 06:52
PROVIDERS: ATTENDING PHYSICIAN Nurse Practitioner Adult Health
DX: E83.42 Hypomagnesemia (principal); D64.9 Anemia, unspecified
CPT/HCPCS: 36415; 82306; 82607; 82728; 82746; 83735; 83970; 85025